=== PATIENT | male | born 1985 | race Caucasian/White ===

== ENCOUNTER 2016-08-01 20:54 | Emergency (ER) | payer BC, OTHER ==
[2016-08-01 20:58] VITALS: BP 120/73; PULSE 77; TEMP 98.1; BMI 29.9
--- NOTE | 2016-08-01 21:19 | PDOC ---
History of Present Illness - General Chief Complaint: Injury Stated Complaint: LT FOOT INJURY Time Seen by Provider: 08/01/16 21:10 History Source: Patient Exam Limitations: No Limitations - History of Present Illness Initial Comments: 08/01/16 21:16 31 yr male injured left foot today. Pt states he stepped out of shower and heard a crack. Pt has pain with movement of the toes left foot no previous injury. Past History - Past Medical History Allergies/Adverse Reactions: Allergies Allergy/AdvReac Type Severity Reaction Status Date / Time No Known Allergies Allergy Verified 08/01/16 20:55 Asthma: Yes - Psycho/Social/Smoking Cessation Hx Suicidal Ideation: No Smoking History: Never smoked Review of Systems - Review of Systems Able to Perform ROS?: Yes Is the patient limited Yoruba proficient: No Constitutional: No: Symptoms Reported HEENTM: No: Symptoms Reported Respiratory: No: Symptoms reported Cardiac (ROS): No: Symptoms Reported ABD/GI: No: Symptoms Reported : No: Symptoms Reported Musculoskeletal: Yes: Symptoms Reported, See HPI Integumentary: No: Symptoms Reported *Physical Exam - Vital Signs Last Vital Signs Temp Pulse Resp BP Pulse Ox 98.1 F 77 18 120/73 99 08/01/16 20:55 08/01/16 20:55 08/01/16 20:55 08/01/16 20:55 08/01/16 20:55 - Physical Exam General Appearance: Yes: Nourished, Appropriately Dressed HEENT: positive: EOMI, LANE Neck: positive: Supple Musculoskeletal: positive: Normal Inspection Extremity: positive: Normal Capillary Refill, Normal Inspection, Tender (top of left foot to lateral side , no deformity , nv intact) Integumentary: positive: Normal Color, Dry, Warm Neurologic: positive: Fully Oriented, Alert, Normal Mood/Affect, Normal Response , Motor Strength 5/5 Procedures - Splinting Progress: 08/01/16 21:32 galo dressing left foot with hard sole shoe ED Treatment Course - RADIOLOGY Radiology Studies Ordered: Category Date Time Status FOOT-LEFT [RAD] Stat Radiology 08/01/16 21:12 Ordered Medical Decision Making - Medical Decision Making 08/01/16 21:17 cc: left foot pain, heard a crack no pain meds taken 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 *DC/Admit/Observation/Transfer Diagnosis at time of Disposition: Foot sprain Qualifiers: Encounter type: initial encounter Laterality: right Qualified Code(s): S93.601A - Unspecified sprain of right foot, initial encounter - Discharge Dispostion Disposition: HOME Condition at time of disposition: Good - Referrals Referrals: Judd Alba MD [Primary Care Provider] - Narayan Orona MD [Staff Physician] - - Patient Instructions Additional Instructions: elevate the foot and apply ice every 2hrs-3hrs for 20 minutes while awake for the next 2 days take naprosyn for pain use the hard sole shoe and margoth wrap follow with the orthopedist next week if symptoms worsen or persist take it easy the next few days
[2016-08-01] MEDS ORDERED: NAPROXEN 500 MG TABLET (FP) PO ONE (21:25)
[2016-08-01] MEDS ORDERED: NAPROXEN 500 MG TABLET (FP) ONE (21:32)
== END 2016-08-01 21:41 | disposition home or self-care (01) ==
LOC: JERFT 20:54
DX: S93.692A Other sprain of left foot, initial encounter (principal); X50.0XXA Overexertion from strenuous movement or load, initial encounter; Y93.E1 Activity, personal bathing and showering; Y92.012 Bathroom of single-family (private) house as the place of occurrence of the external cause; J45.909 Unspecified asthma, uncomplicated
CPT/HCPCS: 73630-TC-LT; 99281-25

== ENCOUNTER 2024-05-19 04:53 | Day surgery (SDC) | payer BC, OTHER ==
[2024-05-18 09:25] VITALS: BMI 33.0
[2024-05-19 08:59] VITALS: TEMP 98.3
[2024-05-19 09:30] VITALS: BP 122/75; PULSE 67; RESP 14
== END 2024-05-19 09:41 | disposition home or self-care (01) ==
LOC: JASU-ENDO 04:53
PROVIDERS: ATTEND Internal Medicine Gastroenterology
PROC: 0DBL8ZX Excision of Transverse Colon, Via Natural or Artificial Opening Endoscopic, Diagnostic (ICD-10-PCS; 2024-05-19)
PROC: 0DBN8ZX Excision of Sigmoid Colon, Via Natural or Artificial Opening Endoscopic, Diagnostic (ICD-10-PCS; 2024-05-19)
PROC: 0DBH8ZX Excision of Cecum, Via Natural or Artificial Opening Endoscopic, Diagnostic (ICD-10-PCS; principal; 2024-05-19 08:00)
DX: Z12.11 Encounter for screening for malignant neoplasm of colon (principal); D12.5 Benign neoplasm of sigmoid colon; D12.3 Benign neoplasm of transverse colon; D12.0 Benign neoplasm of cecum; K64.8 Other hemorrhoids; Z80.0 Family history of malignant neoplasm of digestive organs
CPT/HCPCS: 88305-TC